=== PATIENT | male | born 2000 | race Caucasian/White ===

== ENCOUNTER 2022-08-08 02:23 | Emergency (ER) | payer OTHER, BC ==
[2022-08-08 02:37] VITALS: BP 127/72; PULSE 81; RESP 17; TEMP 98.2; BMI 25.7
[2022-08-08] MEDS ORDERED: HIV POST EXPOSURE PROPHYLAXIS KIT NR ONE (03:02)
[2022-08-08 03:13] LABS: BASO % 1.1 % (0-2.0); EOS % 2.2 % (0-4.5); HEMATOCRIT 42.1 % (35.4-49); HEMOGLOBIN 13.8 GM/dL (11.7-16.9); LYMPH % 19.1 % (8-40); MCH 26.6 pg (25.7-33.7); MCHC 32.9 g/dl (32.0-35.9); NEUT % 67.6 % (42.8-82.8); PLATELET COUNT 262 10^3/uL (134-434); RBC 5.19 M/mm3 (4.00-5.60); RDW 13.7 % (11.9-15.9); WHITE BLOOD COUNT 6.6 K/mm3 (4.0-10.0)
[2022-08-08] MEDS ORDERED: HIV POST EXPOSURE PROPHYLAXIS KIT PO ONE (03:22)
[2022-08-08 03:36] LABS: BLOOD UREA NITROGEN 14.8 mg/dL (7-18); CALCIUM 8.7 mg/dL (8.5-10.1)
[2022-08-08 03:37] LABS: ALBUMIN 4.2 g/dl (3.4-5.0)
[2022-08-08 03:41] LABS: BILIRUBIN,TOTAL 0.5 mg/dL (0.2-1); TOT PROT 7.5 g/dl (6.4-8.2)
[2022-08-08 04:32] LABS: HIV INTERPRETATION NEGATIVE (NEGATIVE)
== END 2022-08-08 03:33 | disposition home or self-care (01) ==
LOC: JER 02:23
DX: B20 Human immunodeficiency virus [HIV] disease (principal); Z77.21 Contact with and (suspected) exposure to potentially hazardous body fluids
CPT/HCPCS: 36415; 80053; 85025; 86704; 86803; 87340; 87389; 87517; 99283-25